=== PATIENT | female | born 1970 | race Caucasian/White ===

== ENCOUNTER 2016-06-20 14:15 | Emergency (ER) | payer OTHER ==
--- NOTE | 2016-06-20 14:41 | EKG Report ---
Test Performed on : 06/20/2016 2:21:42 PM Test Reason : left side arm pain/numbness Blood Pressure : / mmHG Vent. Rate : 063 BPM Atrial Rate : 063 BPM P-R Int : 146 ms QRS Dur : 080 ms QT Int : 408 ms P-R-T Axes : 033 -02 049 degrees QTc Int : 417 ms Normal sinus rhythm. Low voltage QRS Cannot rule out Anterior infarct , age undetermined Abnormal ECG When compared with ECG of 27-MAY-2015 14:05, No significant change was found Unconfirmed Result
--- NOTE | 2016-06-20 14:48 | PROVIDER DOCUMENTATION ---
HPI-General Adult - General Source: patient - History of Present Illness -Gen Adult Nature of Presenting Problems: pt is a 45 y/o F present to the ER with complaints of weakness and numbess on the left side of her body. pt states she was at [employer] and she got dizzy and tingling down the left side of her face and arm. pt denies falling out, nausea, vomiting, or chest pain. Pt takes norvasc for HTN. denies headache. pt also states both hands turned red except for the tips of her fingers were white. Location of Pain/Injury: reports: face Pain Radiation: reports: arm(s) Quality of Pain: reports: other (numbesss and tingling on the left side) Onset/Duration: reports: just prior to arrival Timing: reports: gone now Context/Activities at Onset: reports: none Modifying Factors: improves with: nothing Associated Symptoms: reports: dizziness. denies: chest pain, constipation, cough, diaphoresis, diarrhea Similar Symptoms Previously?: No Recently seen or treated by another doctor?: No <Maria Guadalupe Croft - Last Filed: 06/20/16 17:54> <Willie Butler - Last Filed: 06/20/16 18:04> - General Chief Complaint: Numbness Stated Complaint: left sided numbness Time Seen by Provider: 06/20/16 14:43 Allergies/Adverse Reactions: Patient Allergies Allergy/AdvReac Type Severity Reaction Status Date / Time No Known Allergies Allergy Verified 06/20/16 14:18 Home Medications: Home Medication List Medication Instructions Recorded Confirmed Last Taken Type Amlodipine Besylate [Norvasc] 5 mg PO DAILY 05/22/14 06/20/16 05/27/15 History Losartan Potassium 100 mg PO DAILY #30 tablet 06/20/16 Unknown Rx Review of Systems - Adult - REVIEW OF SYSTEMS - ADULT Constitutional: denies: chills, fever, fatique Eyes: denies: discharge, dry eyes Ears, Nose, Mouth & Throat: reports: no symptoms reported Cardiovascular: reports: no symptoms reported Respiratory: reports: no symptoms reported Gastrointestinal: reports: no symptoms reported Genitourinary: reports: no symptoms reported Musculoskeletal: denies: bone pain, back pain, frequent leg cramps Integumentary: reports: no symptoms reported Neurological: reports: dizziness/vertigo, numbness. denies: headache/migraines , seizure, slurred speech, syncope Psychiatric: reports: no symptoms reported Endocrine: reports: no symptoms reported Hematologic/Lymphatic: reports: no symptoms reported Allergic/Immunologic: reports: no symptoms reported All Other Systems: Reviewed and Negative <GuerdaMaria Guadalupe - Last Filed: 06/20/16 17:54> Past History - Adult - PAST MEDICAL HISTORY-ADULT Review of Records: reports: Nursing Assessment Review Major Childhood Illnesses: reports: denies history Cardiovascular: reports: HTN - PRIOR SURGERIES/PROCEDURES Surgical/Procedure History: reports: none - IMMUNIZATION STATUS Childhood Immunizations: See Nurse Assessment Flu Vaccine: See Nurse Assessment - SOCIAL HISTORY Smoking: other (light tobacco smoker ) Provider spent 3-5 mins advising pt. on dangers of tobacco.: Discussed manners to quit use, and f/u contacts for add'l counseling. Substance Use: alcohol Alcohol Use Frequency: every day Living Situation: family <GuerdaMaria Guadalupe - Last Filed: 06/20/16 17:54> Physical Exam-General - PHYSICAL EXAM-ADULT Initial Vital Signs Reviewed: Yes - CONSTITUTIONAL General Appearance: appears well, alert, mild distress - EYES Eyes: PERRL/EOMI, pink conjunctivae - HEAD, EARS, NOSE, MOUTH & THROAT HENMT: moist mucous membranes, normal ENT inspection - NECK Neck: non-tender, full range of motion - RESPIRATORY Respiratory: chest non-tender, lungs clear, normal breath sounds, no pleuratic chest pain, no respiratory distress, no accessory muscle use - CARDIOVASCULAR Cardiovascular: normal peripheral pulses, regular rate, rhythm, no edema, no gallop, no JVD, no murmur - GASTROINTESTINAL (ABDOMEN) Abdominal Exam: normal bowel sounds, non tender, soft - MUSCULOSKELETAL Extremity: normal range of motion, non-tender, normal gait, normal inspection, no pedal edema, no calf tenderness, normal capillary refill - SKIN Integumentary: normal color, normal turgor, warm/dry - NEUROLOGIC Neurologic: grossly normal, no motor/sensory deficits - PSYCHIATRIC Psych/Mental Status: normal mood/affect, normal thought content, normal thought process, oriented x 3 <GuerdaMaria Guadalupe - Last Filed: 06/20/16 17:54> Progress - PLAN OF CARE/RESULTS Progress/Plan/Lab Results: Orders Category Date Time Status CHEST-2 VIEWS [RAD] Stat Exams 06/20/16 14:46 Taken HEAD W/O CONTRAST [CT] Stat Exams 06/20/16 14:39 Taken ALCOHOL BLOOD Stat Lab 06/20/16 14:41 Ordered CBC WITH DIFF [HEME] Stat Lab 06/20/16 14:40 Ordered COMPREHENSIVE METABOLIC PANEL [CHEM] Stat Lab 06/20/16 14:40 Ordered URINE DRUG SCREEN PL Stat Lab 06/20/16 14:55 Ordered Carotid Ultrasound [CV] Timed Ther 06/20/16 14:39 Ordered EKG [EKG] Stat Ther 06/20/16 14:22 Draft Echo Spec/Color Dop W/O Contra [CV] Routine Ther 06/20/16 14:39 Ordered Vital Signs - 24 hr 06/20/16 14:18 Pulse Rate 75 Respiratory 18 Rate O2 Sat by Pulse 100 Oximetry - EKG 1 Time of EKG reading by physician:: 14:21 EKG Interpretation (*Must complete 3 of following elements*): Abnormal (Normal sinus rhythm, low voltage QRS, Cannot rule out anterior infarct, age undetremined, Abnormal ECG) Rate: 63 Rhythm: NSR Low voltage QRS QRS: other (Low voltage QRS) - XRAY 1 XRAY: Bilateral XRAY Study: Chest Impression: Normal (The lungs are well expanded. The heart is no enlarged. The vessels are mot distended. There are no infiltrates. No pleaural effusion. There has been prior surgery to the left clavicale) - CT/MRI 1 CT Study: Head Impression: Normal (No hemorrhage. Negative brain Ct without contrast) - ULTRASOUND (By Radiology) 1 US Study: other (carotid US) Impression: Normal (No stenosis within either CCA or ICA) <Maria Guadalupe Croft - Last Filed: 06/20/16 17:54> Departure <Maria Guadalupe Croft - Last Filed: 06/20/16 17:54> - Departure Time of Disposition Order: 18:01 Certified Medical Emergency: Emergent <Willie uBtler - Last Filed: 06/20/16 18:04> - Departure DIAGNOSIS: Dysesthesia affecting both sides of body Hypertension Qualifiers: Hypertension type: essential hypertension Qualified Code(s): I10 - Essential ( primary) hypertension Disposition: HOME 01 Condition: Stable Additional Instructions: ED Follow Up Instructions: You have been treated by a care provider in the Emergency Department. These instructions are being provided to you so you can have an understanding of how to care for yourself upon discharge. Upon discharge from the Emergency Department, you are responsible for making arrangements for follow-up care by a physician of your choice. Take all prescribed medications as directed. Return to the Emergency Department immediately for any new or worsening symptoms. You may call the Physician Referral phone number at [phone] to obtain a list of Physicians who are taking new patients. Prescriptions: Losartan Potassium 100 mg PO DAILY #30 tablet Referrals: Adenike Palm [Primary Care Provider] - Attestation - Scribe Verification/Attestation Scribe:: Maria Guadalupe Croft Acting as Scribe for:: Willie Butler Scribe documention review:: This chart was documented by a scribe and accurately reflects the service the provider performed and the decisions made by the provider. - Scribe Verification/Attestation #2 Shift Change Time: 18:00 Scribe Name: Troy Saenz Acting as Scribe for:: Willie Butler <Maria Guadalupe Croft - Last Filed: 06/20/16 17:54> Physician Attestation
[2016-06-20 15:11] LABS: UR AMPHETAMINES QUAL NONE DETECTED (NONE DETECT); UR BARBITUATES QUAL NONE DETECTED (NONE DETECT); UR BENZODIAZEPIN QUAL NONE DETECTED (NONE DETECT); UR CANNABINOIDS QUAL NONE DETECTED (NONE DETECT); UR COCAINE QUAL NONE DETECTED (NONE DETECT); UR MDMA QUAL NONE DETECTED (NONE DETECT); UR METHADONE QUAL NONE DETECTED (NONE DETECT); UR METHAMPHETAMINE QUAL NONE DETECTED (NONE DETECT); UR OPIATES QUAL NONE DETECTED (NONE DETECT); UR OXYCODONE QUAL NONE DETECTED (NONE DETECT); UR PCP QUAL NONE DETECTED (NONE DETECT); UR TCA QUAL NONE DETECTED (NONE DETECT)
[2016-06-20 15:11] LABS: MANUAL DIFF NEEDED? NO
[2016-06-20 15:14] LABS: BASO% 0.5 % (0.0-0.8); EOS# 0.08 X1000 (0.0-0.7); EOS% 0.8 % (0.0-10.0); HEMATOCRIT 41.3 % (37.0-47.0); HEMOGLOBIN 13.9 g/dL (12.0-16.0); IMM GRAN# 0.02 X1000 (0.0-0.04); IMM GRAN% 0.2 % (0.0-0.5); LYMPH# 1.29 X1000 (1.2-3.4); LYMPH% 12.3 % (20.5-51.1); MCH 29.6 PG (27-31); MCHC 33.7 g/dL (33-37); MCV 88.1 FL (81-99); MONO# 0.69 X1000 (0.11-0.59); MONO% 6.6 % (1.7-9.3); MPV 9.8 FL (7.4-10.4); NEUT% 79.6 % (42.2-75.2); PLT 316 X1000 (130-400); RBC 4.69 XMIL (4.2-5.4)
--- NOTE | 2016-06-20 15:19 | Diag Imaging Result Document ---
PROCEDURE NAME: HEAD W/O CONTRAST - 06/20/2016 CT BRAIN WITHOUT CONTRAST: COMPARISON: 05/22/2014. FINDINGS: No parenchymal hemorrhage. No epidural or subdural hematoma. No subarachnoid hemorrhage. No mass identified on this noncontrasted exam. No hydrocephalus. No sinus opacification. No air fluid levels. IMPRESSION: No hemorrhage. Negative brain CT without contrast. A preliminary report was given at 2:57 p.m..
--- NOTE | 2016-06-20 15:40 | Diag Imaging Result Document ---
PROCEDURE NAME: CHEST-2 VIEWS - 06/20/2016 FRONTAL AND LATERAL CHEST, TWO VIEWS: COMPARISON: 11/03/2015. FINDINGS: The lungs are well expanded. The heart is not enlarged. The vessels are not distended. There are no infiltrates. No pleural effusions. There has been prior surgery to the left clavicle. IMPRESSION: No pneumonia.
[2016-06-20 15:52] LABS: AGAP 10; ALBUMIN 4.3 g/dL (3.5-5.0); ALKALINE PHOSPHATASE 80 U/L (32-104); BUN 10 mg/dL (8-22); CALCIUM 10.2 mg/dL (8.8-10.2); CHLORIDE 103 mmol/L (98-107); COSMO 275; GOT 25 U/L (10-30); GPT 17 U/L (10-36); POTASSIUM 3.5 mmol/L (3.5-5.1); SODIUM 138 mmol/L (136-145); TCO2 26 mmol/L (25-35); TOTAL PROTEIN 7.3 g/dL (6.3-8.3)
[2016-06-20 18:22] VITALS: BP 144/95
--- NOTE | 2016-06-20 18:42 | ECHO REPORT ---
ORDER DATE: 06/20/2016 INTERPRETING PHYSICIAN: Dr. Snider REQUESTING PHYSICIAN: Dr. Butler CLINICAL INDICATIONS: Jcpur-grh-opci-old female. M-MODE MEASUREMENTS: Right ventricle: 2.7 cm. Left ventricle end diastole: 4.2 cm. Left ventricle end systole: 2.3 cm. Posterior wall: 0.8 cm. Interventricular septum: 0.8 cm. Left atrium: 2.8 cm. Aortic root: 2.8 cm. SUMMARY OF 2-DIMENSIONAL IMAGING: Left ventricular function is normal, ejection fraction of 70%. Left ventricular chamber is normal. Right ventricle is normal. The atria appear to be normal. The mitral valve looks normal. Color flow mapping unremarkable. Pulse wave Doppler of mitral inflow is normal. Tissue Doppler of septal and lateral mitral annulus averages 10 cm. Pulmonary venous flow is normal. There is no diastolic dysfunction. Aortic valve looks normal. It has three cusps. Color flow mapping unremarkable. Inferior vena cava is not dilated. Tricuspid valve shows trivial degree of regurgitation. Pulmonary pressure is normal in the range of 20 to 25 mmHg. The pulmonic valve looks normal. Color flow mapping unremarkable. There is no pericardial effusion, masses, or thrombus. SUMMARY: This echocardiographic study appears to be well within normal range. [facility]
--- NOTE | 2016-06-23 07:20 | Extremity Venous Study ---
PROCEDURE NAME: Carotid Ultrasound - 06/20/2016 CAROTID DOPPLER ULTRASOUND: FINDINGS: Right: There is normal flow in the right common carotid artery. No stenosis. Normal flow in the internal carotid artery. Peak systolic velocity within the internal carotid artery is 89 cm/sec. No calcified plaque. There is antegrade flow in both vertebral arteries. Left: There is normal flow in the left common carotid artery. No stenosis. Normal flow in the internal carotid artery. No calcified plaque. Peak systolic velocity in the internal carotid artery is 75 cm/sec. IMPRESSION: No stenosis within either common carotid artery or within either internal carotid artery. A preliminary report was given at 4:16 p.m.
== END 2016-06-20 18:22 | disposition home or self-care (01) ==
LOC: P.ED 14:15
DX: R20.8 Other disturbances of skin sensation (principal); I10 Essential (primary) hypertension; R20.0 Anesthesia of skin; R20.2 Paresthesia of skin; R42 Dizziness and giddiness; F17.210 Nicotine dependence, cigarettes, uncomplicated; Z71.6 Tobacco abuse counseling; R94.31 Abnormal electrocardiogram [ECG] [EKG]; Z79.899 Other long term (current) drug therapy
CPT/HCPCS: 70450; 71020; 80053; 80305; 85025; 93005; 93306; 93880; G0480; 80320

== ENCOUNTER 2018-11-07 21:09 | Inpatient (IN) ==
[2018-11-07] MEDS ORDERED: ZOFRAN IV PRN (21:35)
[2018-11-07] MEDS ORDERED: TYLENOL PO PRN (21:35)
[2018-11-07] MEDS ORDERED: ATIVAN IV PRN (21:43)
[2018-11-07] MEDS ORDERED: KCL IV SCH (21:45)
[2018-11-07] MEDS ORDERED: NS IV SCH (21:45)
[2018-11-07] MEDS ORDERED: POTASSIUM CHLORIDE IV SCH (21:45)
[2018-11-07] MEDS ORDERED: CATAPRES PO PRN (21:56)
[2018-11-07] MEDS ORDERED: NS 1,000 ML IV SCH (22:00)
[2018-11-07] MEDS: NS 1,000 ML IV SCH (22:12)
[2018-11-07] MEDS: LIBRIUM PO SCH (22:12)
[2018-11-07 22:39] LABS: BASO# 0.04 X1000 (0.0-0.2); BASO% 0.5 % (0.0-0.8); EOS# 0.14 X1000 (0.0-0.7); EOS% 1.7 % (0.0-10.0); HEMATOCRIT 41.2 % (37.0-47.0); HEMOGLOBIN 13.7 g/dL (12.0-16.0); LYMPH# 1.55 X1000 (1.2-3.4); LYMPH% 18.9 % (20.5-51.1); MCH 29.7 PG (27-31); MCHC 33.3 g/dL (33-37); MCV 89.4 FL (81-99); MONO# 0.67 X1000 (0.11-0.59); MONO% 8.2 % (1.7-9.3); MPV 9.5 FL (7.4-10.4); NEUT# 5.79 X1000 (1.4-6.5); NEUT% 70.7 % (42.2-75.2); PLT 289 X1000 (130-400); RBC 4.61 XMIL (4.2-5.4); RDW 13.3 % (11.5-14.5); WBC 8.19 X1000 (4.8-10.8)
[2018-11-07 23:32] LABS: UR AMPHETAMINES QUAL NONE DETECTED (NONE DETECT); UR BARBITUATES QUAL NONE DETECTED (NONE DETECT); UR BENZODIAZEPIN QUAL PRESUMPTIVE POSITIVE (NONE DETECT); UR CANNABINOIDS QUAL NONE DETECTED (NONE DETECT); UR COCAINE QUAL NONE DETECTED (NONE DETECT); UR METHADONE QUAL NONE DETECTED (NONE DETECT); UR OPIATES QUAL NONE DETECTED (NONE DETECT); UR OXYCODONE QUAL NONE DETECTED (NONE DETECT); UR PCP QUAL NONE DETECTED (NONE DETECT)
[2018-11-07 23:33] LABS: AGAP 15; ALB/GLOB RATIO 1.3; ALBUMIN 4.1 g/dL (3.5-5.0); ALKALINE PHOSPHATASE 110 U/L (32-104); BUN 9 mg/dL (8-22); CALCIUM 9.3 mg/dL (8.8-10.2); CHLORIDE 100 mmol/L (98-107); COSMO 279; CREATININE 0.7 mg/dL (0.5-0.9); ESTIMATED GFR > 60; GLUCOSE 106 mg/dL (70-104); GOT 46 U/L (10-30); GPT 39 U/L (10-36); POTASSIUM 3.4 mmol/L (3.5-5.1); SODIUM 140 mmol/L (136-145); TCO2 25 mmol/L (25-35); TOTAL BILIRUBIN 0.31 mg/dL (0.20-1.00); TOTAL PROTEIN 7.2 g/dL (6.3-8.3)
[2018-11-08] MEDS: LIBRIUM PO SCH ×4 (03:23→21:30)
--- NOTE | 2018-11-08 07:58 | PROGRESS NOTE ---
DATE: 11/08/2018 SUBJECTIVE: Patient in ICU, has slept well and overall doing well. No complaints this morning. OBJECTIVE: Vital Signs: Afebrile. Vital signs stable. Cardiovascular: RRR without murmur. Lungs: CTA. Abdomen: Nontender, nondistended. Extremities: No edema. LABORATORY DATA: Shows potassium of 3.4, otherwise CMP with mild elevation in LFTs, as this was present prior to admission as well. CBC normal. Urine drug screen positive for the benzodiazepine. She was being treated with outpatient in the form of Librium to detox outpatient. ASSESSMENT: 1. Alcohol withdrawal. 2. Folic acid deficiency. 3. Hypertension. PLAN: Continue Librium orally with p.r.n. Ativan as required. Continue banana bag IV fluids. Continue her Norvasc for blood pressure control. We are giving her the banana bag, and we will give her oral folic acid as well. Continue to monitor in the ICU, as the patient was getting quite restless at home and failed outpatient detoxification. We will continue aggressive management in the ICU presently, possibly move out to the telemetry floor bed in the next day or 2 if she does well, but expect that she may develop worsening DTs in the next 72 hours. cc: Rene Palm MD
--- NOTE | 2018-11-08 08:46 | HISTORY AND PHYSICAL ---
CHIEF COMPLAINT: Alcohol withdrawal. HISTORY OF PRESENT ILLNESS: The patient is a 48-year-old white female followed in my medical practice. The patient came to the office on 11/04/2018 for evaluation and we started detoxification of alcohol withdrawal with Librium orally at 20 mg p.o. q.a.m. and 30 mg nightly and she did well for about a day or 2 and then we had to escalate the dose to 30 mg t.i.d. She became very restless. Her father and mother had taken her to their home and they managed her medication and she has become increasingly restless with tremulousness, tachycardia, and has been belligerent with the parents. The patient has a history of alcoholism for at least 10 years. About 6 years ago, she was placed in rehab facility in [place], [place] but failed to respond. The patient has a history of binge drinking, heavily drinking wine for several days at a time and then going several days without anything or a low-dose for several days. She is not having hallucinations. There has been no history of fever. No prior history of seizures. MEDICATIONS: Prior to admission are Librium 30 mg p.o. t.i.d., multivitamin 1 daily, thiamine 100 mg daily, Norvasc 5 mg daily. ALLERGIES: Codeine which caused nausea. PAST MEDICAL HISTORY: 1. Alcoholism. 2. Hypertension. 3. Folic acid deficiency found with folic acid in the 2 range outpatient. 4. Alcoholic hepatitis. PAST SURGERY HISTORY: 1. Left clavicle surgery. 2. Sling urinary procedure. IMMUNIZATIONS: Tdap received 08/24/2018 after dog bite. FAMILY HISTORY: Notable for hypertension in mother and father. No diabetes in the family. Stroke in her maternal grandmother. No cancer in the family. Alzheimer's dementia in maternal grandmother, myocardial infarction in her grandmother. SOCIAL HISTORY: The patient lives in [place]. She is , has 4 children. 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 She has never been a smoker. Wine drinker as above. No drug use. REVIEW OF SYSTEMS: Also notable for 1 week ago history of contusion to the left orbit, which has been prominent. PHYSICAL EXAMINATION: VITAL SIGNS: See chart. GENERAL: Thin, white female, agitated, but agreeable. SKIN: Prominent bruising of the left orbit, purplish-yellow streaking of bruising down the left cheek into the left mandibular chin area. HEENT: PERRL. EOMI. Sclerae clear. No nystagmus. TMs normal. Oropharynx with no redness. Tongue in the midline. NECK: No LA, TMG, JVD, bruits. CARDIOVASCULAR: Tachycardia, regular rhythm. No murmur. LUNGS: Clear to auscultation. BACK: No CVA tenderness. ABDOMEN: Soft. Minimal distention. Active bowel sounds. No mass or organomegaly. No definite ascites. BREASTS/PELVIC/RECTAL: Deferred. EXTREMITIES: No CCE, PP 2+. NEUROLOGIC: Cranial nerves 2-12 are intact. Alert and oriented x4. She moves all extremities well. She has mild to moderate tremulousness and some agitation is noted. ASSESSMENT: 1. Alcohol withdrawal with impending DTs. 2. Alcoholism. 3. Alcoholic hepatitis, mild. 4. Hypertension. PLAN: Discussed with the patient and she has agreed to come into the hospital for detoxification for the remainder. She had tried to do this at home, but she has threatened to leave her parent's home. She had told me prior to onset of the difficulties that she was adamant she wanted to come off alcohol and please help her. Thus we are pursuing this aggressively. It appears now she has done all she can at home and she will need admission for the rest of the detoxification. We will need to monitor her respirations and blood pressure situation on the medications that will be required to improve her. We will place her on a banana bag, give her oral Librium at a higher dose 50 mg p.o. q.6 hours and will give p.r.n. Ativan. We will consider phenobarbital she worsens. Give her IV fluids. Repeat labs that were done outpatient to include CBC, CMP. We had done amylase and lipase outpatient which were normal. We have done thyroid function test outpatient and folic acid and B12 and the B12 was normal but her folic acid level was 2. We will give her oral folic acid as well. Clonidine p.r.n. elevated blood pressure. We will monitor the patient clinically in the ICU. cc: Rene Palm MD
[2018-11-08] MEDS: M.V.I.-12 10 ML, FOLIC ACID 1 MG, MAGNESIUM SULFATE 1 GM, THIAMINE 100 MG in NS 1,000 ML IV SCH (08:48)
[2018-11-08] MEDS: NORVASC PO SCH (08:49)
[2018-11-08] MEDS: FOLIC ACID PO SCH (08:49)
[2018-11-08] MEDS: NS 1,000 ML IV SCH (21:31)
[2018-11-09] MEDS: LIBRIUM PO SCH ×4 (03:06→22:01)
[2018-11-09] MEDS: M.V.I.-12 10 ML, FOLIC ACID 1 MG, MAGNESIUM SULFATE 1 GM, THIAMINE 100 MG in NS 1,000 ML IV SCH (08:51)
[2018-11-09] MEDS: FOLIC ACID PO SCH (08:51)
[2018-11-09] MEDS: NORVASC PO SCH (08:52)
[2018-11-09] MEDS: NS 1,000 ML IV SCH ×2 (16:28→18:45)
[2018-11-09] MEDS ORDERED: PHENOBARBITAL IV PRN (19:14)
--- NOTE | 2018-11-09 19:49 | PROGRESS NOTE ---
DATE: 11/09/2018 SUBJECTIVE: The patient is seen originally in the ICU this morning. We were able to move her out to the floor. She had overall a good night, but during the day today she has had some restlessness and she was wanting to leave AMA and go home for a brief period after her friend talked to her, but her friend had advised her about going to [facility], we continued to debate and discuss going to a 30 day rehab program after this hospitalization and she is more intent on going home and doing [facility] outpatient. We continued to discuss this and I strongly encouraged her to go to the rehab after this detoxification. Overall, she is having some difficulty, some anxiety, mild agitation, but overall reasonably well controlled. OBJECTIVE: Slightly tearful white female.CV: RRR. No murmur. Lungs: CTA. Extremities: No calf tenderness, cords or edema. ASSESSMENT: 1. Alcohol withdrawal. 2. Folic acid deficiency. 3. Hypertension. PLAN: 1. Continue banana bag and IV fluids at low dose. 2. Continue Librium 50 mg q.6 hours with p.r.n. Ativan as required. 3. I am going to give a dose of phenobarbital 65 mg that may be given once if she gets extremely agitated and threatens to leave. For now, I am going to try to hold off on the phenobarb. 4. I strongly encouraged her to stay and she is certainly willing to do that at this point. She is still in a good mind set overall; although, the expected tribulations of alcohol withdrawal is leading her to want to go home. 5. We will continue folic acid supplementation and Norvasc for blood pressure. Continue to observe on the floor. If she worsens again, we will get her back to the intensive care unit. cc: Rene Palm MD
[2018-11-10] MEDS: LIBRIUM PO SCH ×3 (03:07→17:02)
[2018-11-10] MEDS: M.V.I.-12 10 ML, FOLIC ACID 1 MG, MAGNESIUM SULFATE 1 GM, THIAMINE 100 MG in NS 1,000 ML IV SCH (09:41)
[2018-11-10] MEDS: FOLIC ACID PO SCH (09:41)
[2018-11-10] MEDS: NORVASC PO SCH (09:42)
[2018-11-10] MEDS: LOVENOX SUBQ SCH (09:42)
[2018-11-10] MEDS: NS 1,000 ML IV SCH (17:02)
--- NOTE | 2018-11-10 21:51 | PROGRESS NOTE ---
DATE: 11/10/2018 SUBJECTIVE: The patient was seen earlier this morning, is doing reasonably well. She is having no major tremulousness. She is still contemplating going back home after the detoxification period to start outpatient AA meetings or Al-[facility] by her report. She is declining to go to a rehabilitation facility for her alcohol addiction. OBJECTIVE: Vital Signs: Afebrile. Vital signs stable. Cardiovascular: RRR. Lungs: CTA. Extremities: No calf tenderness, cords or edema. Neurologic: No major tremulousness. Alert orient x3. No hallucinations. ASSESSMENT: 1. Alcohol withdrawal. 2. Folic acid deficiency. 3. Hypertension. PLAN: For now we will continue the present treatments. Strongly encouraged the patient to let us pursue the rehabilitation which is readily available to her through her father's efforts. She is declining. We will continue present medication of Librium and start to taper that tomorrow if she continues to do well. We will likely watch her for 4 hours and if she does not have any strong withdrawal symptoms we will discharge her out of the hospital on Librium taper. cc: Rene Palm MD
[2018-11-11] MEDS: LIBRIUM PO SCH ×4 (02:21→22:07)
[2018-11-11] MEDS ORDERED: SALINE LOCK IV FLUID XX ONE (08:27)
--- NOTE | 2018-11-11 08:50 | PROGRESS NOTE ---
DATE: 11/11/2018 SUBJECTIVE: The patient continues to do well overall, remaining calm. She has a plan to go to outpatient [facility] meetings on discharge. Overall continues to improve. OBJECTIVE: Vital Signs: Afebrile, pulse 58, respirations 18, blood pressure 137/77, O2 saturation on room air is 98%. CV: RRR. No murmur. Lungs: CTA. Extremities: No calf tenderness, cords, or edema. Neurologic: Nonfocal. No tremulousness. Alert and oriented x3. ASSESSMENT: 1. Alcohol withdrawal. 2. Folic acid deficiency. 3. Hypertension. PLAN: Will stop IV fluids and IV banana bag. Will decrease her Librium to 30 mg p.o. every 8 hours. Continue folic acid 1 mg daily. Add multivitamin orally daily and thiamine 100 mg daily orally. Continue her Norvasc. Will allow her to ambulate, saline lock her IV, and try to keep her on the floor here. She is progressing and improving with the detoxification process, and will likely discharge in the morning if she continues on her present course. cc: Rene Palm MD
[2018-11-11] MEDS: FOLIC ACID PO SCH (09:44)
[2018-11-11] MEDS: VITAMIN B-1 PO SCH (09:44)
[2018-11-11] MEDS: NORVASC PO SCH (09:44)
[2018-11-11] MEDS: LOVENOX SUBQ SCH (09:44)
[2018-11-11] MEDS: THERA M PLUS PO SCH (09:44)
[2018-11-11] MEDS ORDERED: LIBRIUM PO SCH (13:00)
[2018-11-12] MEDS: LIBRIUM PO SCH (06:10)
[2018-11-12] MEDS: FOLIC ACID PO SCH (08:11)
[2018-11-12] MEDS: VITAMIN B-1 PO SCH (08:11)
[2018-11-12] MEDS: THERA M PLUS PO SCH (08:11)
[2018-11-12] MEDS: NORVASC PO SCH (08:11)
[2018-11-12] MEDS: LOVENOX SUBQ SCH (08:11)
[2018-11-12 08:35] VITALS: BP 112/73
--- NOTE | 2018-11-12 09:36 | DISCHARGE SUMMARY ---
ADMISSION DATE: 11/07/2018 DISCHARGE DATE: 11/12/2018 DIAGNOSES: 1. Alcohol withdrawal. 2. Alcoholism. 3. Mild alcoholic hepatitis. 4. Hypertension. 5. Folic acid deficiency. 6. Left orbital contusion, improved. REASON FOR ADMISSION AND HOSPITAL COURSE: The patient is a 48-year-old white female followed in my medical practice. She had been on outpatient taper of Librium, had been staying in her parent's home as she suffers from alcoholism. She had come into the office about 2 weeks ago and suffered a left orbital contusion after she had been drinking heavily and she had decided she wanted to try to detoxify and come off alcohol. She went home with her parents and for about 3 days did reasonably well on oral Librium taper, but began to have withdrawal symptoms very badly and was trying to leave her parent's home. I went and talked with the patient in detail and she desired admission for impending DTs and she was admitted and started on IV fluids, banana bag. She was found to have folic acid deficiency at 2.6 on her level and she was started on folic acid 1 mg p.o. daily in addition to the banana bag. She was also started on Librium 50 mg q.6 hours and she was placed in the ICU. She was put back on her blood pressure medicine of Norvasc 5 mg daily and did well in that regard. She did have some prominent symptoms of withdrawal, but was able to be transferred out of the ICU to the floor on telemetry. She had no dysrhythmias. She threatened to go AMA 2 or 3 times, but was encouraged to remain in the hospital for ongoing detoxification and she did allow that. She had counseling from several people and she was encouraged to go to rehab facility, which her father had lined up in [place]. However, the patient refused to do so. She decided she wanted to go to outpatient [facility] meetings twice a day and that has been arranged. Will go back to the oral Librium taper starting at 30 mg p.o. t.i.d. for 2 days, then 20 mg p.o. t.i.d. for 4 days, then 20 mg p.o. b.i.d., and she will follow up with me in 10 to 12 days in my office. I have encouraged her to avoid driving while on this medication and her mother is coming to pick her up and will assist in her travels to [facility]. We will follow her up in the office. Will repeat folic acid level, CMP, CBC, B12 levels in the next few weeks. Left orbital contusion that was very prominent has diminished markedly. DISCHARGE MEDICATIONS: Will be the Librium as stated, multivitamin 1 p.o. daily, thiamine 100 mg p.o. daily, Norvasc 5 mg p.o. daily, Norvasc 5 mg p.o. daily, folic acid 1 mg p.o. b.i.d. cc: Rene Palm MD
== END 2018-11-12 09:28 | disposition home or self-care (01) | DRG 897 ==
LOC: DIRADM 21:09 → ICU 21:55 → 3N 11-09 13:52
PROVIDERS: ADMIT Family Medicine; ATTEND Family Medicine
CPT/HCPCS: 80053; 80101; 80301; 80307; 80324; 80345; 80346; 80353; 80358; 80361; 80365; 83735; 83992; 85025; A9270; G0431; G0434; G0479; G0480; J1650; J3411; J3475; J7030